=== PATIENT | male | born 1965 | race Caucasian/White ===

== ENCOUNTER 2025-06-20 10:04 | Inpatient (IN) | payer OTHER ==
[~2025-06-20] VITALS: Ht 170.2 cm; Wt 79.8 kg
[2025-06-20] MEDS ORDERED: SINGULAIR5 MG PO (11:18)
--- NOTE | 2025-06-20 11:20 | NUR ---
SE RECIBE MASCULINO ALERTA Y ORIENTADO X3 CUAL REFIERE PRESENTA DOLOR EN FLANCO DERECHO QUE IRRADIA A PARTE SUPERIOR DE ESPLADA Y PRESENTA DOLOR AL RESPIRAR. NIEGA DOLOR AL TACTO. SE PATSY S/V Y UBICA.
[2025-06-20] MEDS ORDERED: DEXAMETHASONE SODIUM PHOSPHATE 4 MG/ML VIAL IV ONE (11:45)
[2025-06-20] MEDS ORDERED: KETOROLAC TROMETHAMINE 30 MG VIAL IV ONE (11:45)
[2025-06-20] MEDS ORDERED: 0.9 % SODIUM CHLORIDE 1,000 ML IV ONE (11:45)
[2025-06-20] MEDS ORDERED: DEXAMETHASONE SODIUM PHOSPHATE 4 MG/ML VIAL ONE (11:46)
[2025-06-20] MEDS ORDERED: KETOROLAC TROMETHAMINE 30 MG VIAL ONE (11:46)
--- NOTE | 2025-06-20 12:28 | NUR ---
PACIENTE ALERTA Y ORIENTADO SE EDUCA SOBRE TRATAMIENTO A SEGUIR, EL MISMO REFIERE ENTENDER. PACIENTE SE LE ADMINISTRAN MEDICAMENTOS, NANCY DE MUESTRAS CON MEDIDAS ASEOTICAS. SE HACE ENTREGA DE ENVACE PARA COLECTAR U/A Y PERMANECE EN ESPERA PARA XRAY.
[2025-06-20 12:32] LABS: BASO % 0.1 % (0.1-1.2); EOS # 0.02 (0.04-0.54); EOS % 0.1 % (0.7-7.0); LYMPH # 0.68 (1.18-3.74); LYMPH % 4.6 % (19.3-53.1); MEAN PLATELET VOLUME 10.40 fl (9.4-12.4); MONO # 0.31 (0.24-0.82); MONO % 2.1 % (4.7-12.5); NEUT # 13.60 (1.56-6.13); NEUT % 92.5 % (34.0-71.1); RED CELL DISTRIBUTION WIDTH 13.2 % (11.6-14.4)
[2025-06-20 12:44] LABS: ERYTHROCYTE SEDIMENTATION RATE 12 mm/hr (0-20)
[2025-06-20] MEDS ORDERED: LEVALBUTEROL HCL 1.25 MG/3 ML SOLUTION IH SCH ×2 (13:00→14:40)
[2025-06-20] MEDS ORDERED: CEFTRIAXONE SODIUM 2,000 MG VIAL IV ONE (13:00)
[2025-06-20] MEDS ORDERED: IPRATROPIUM BROMIDE 0.5 MG/2.5 ML AMPUL.NEB IH ONE ×2 (13:00→13:08)
[2025-06-20] MEDS ORDERED: CEFTRIAXONE SODIUM 2,000 MG VIAL ONE (13:04)
[2025-06-20 13:08] LABS: URINE APPEARANCE Clear; URINE BILIRRUBIN Negative (NEGATIVE); URINE BLOOD Negative; URINE COLOR Yellow; URINE GLUCOSE Negative (NEGATIVE); URINE KETONE Trace (NEGATIVE); URINE LEUKOCYTE Trace; URINE NITRATE Negative; URINE PROTEIN Trace (NEGATIVE); URINE UROBILINOGEN 0.2 E.U./dl
[2025-06-20] MEDS ORDERED: LEVALBUTEROL HCL 0.63 MG/3 ML SOLUTION IH ONE (13:09)
[2025-06-20 13:13] LABS: URINE BACTERIA 8.0 uL (0.0-1933); URINE CAST 2.83 uL (0.0-1.40); URINE EPITHELIAL CELLS 14.1 uL (0.0-38.8); URINE RBC 3.3 uL (0.0-20.8); URINE WBC 3.3 uL (0.0-23.2)
[2025-06-20 13:13] LABS: ALT/SGPT 24.0 U/L (12-78); AST/SGOT 12.0 U/L (15-37); BILIRUBIN TOTAL 1.95 mg/dL (0.3-1.2); BUN CREA RATIO 10.0 (7.0-25.0); CREATININE SERUM 1.24 mg/dL (0.70-1.30); GFR 59.67; GLOBULINA 3.9 G/DL (2.4-3.5); GLUCOSE FASTING 104.0 mg/dL (65-100); OSMOLALITY SERUM 280.0 MOSM/KG (275-295)
[2025-06-20 13:28] LABS: URINE CRYSTALS FEW /HPF
[2025-06-20 13:32] LABS: COVID-19 AG NEGATIVE (NEGATIVE)
[2025-06-20] MEDS ORDERED: IPRATROPIUM BROMIDE 0.5 MG/2.5 ML AMPUL.NEB IH SCH ×2 (14:40→19:55)
[2025-06-20] MEDS ORDERED: AZITHROMYCIN 500 MG VIAL IV ONE ×2 (14:45→15:05)
--- NOTE | 2025-06-20 15:36 | NUR ---
SE ADMINISTRA TX LOLA ORDEN MEDICA BAJO MEDIDAS ASEPTICAS. SE ORIENTA PTE QUIEN REFIERE ENTENDER Y ACEPTAR
[2025-06-20] MEDS ORDERED: CEFTRIAXONE SODIUM 2,000 MG in 0.9 % SODIUM CHLORIDE 100 ML IV SCH (19:57)
[2025-06-20] MEDS ORDERED: FAMOTIDINE/PF 20 MG in 0.9 % SODIUM CHLORIDE 100 ML IV SCH (19:58)
[2025-06-20] MEDS ORDERED: ACETAMINOPHEN 500 MG GEL..CAP PO SCH (20:00)
[2025-06-20] MEDS ORDERED: LEVALBUTEROL HCL 0.63 MG/3 ML SOLUTION IH SCH (21:00)
[2025-06-20 22:42] VITALS: BP 150/73
[2025-06-21 08:05] LABS: BASO % 0.1 % (0.1-1.2); EOS # 0.01 (0.04-0.54); EOS % 0.1 % (0.7-7.0); LYMPH # 1.02 (1.18-3.74); LYMPH % 6.8 % (19.3-53.1); MEAN PLATELET VOLUME 10.80 fl (9.4-12.4); MONO # 0.65 (0.24-0.82); MONO % 4.4 % (4.7-12.5); NEUT # 12.79 (1.56-6.13); NEUT % 85.7 % (34.0-71.1); RED CELL DISTRIBUTION WIDTH 13.7 % (11.6-14.4)
[2025-06-21 08:40] VITALS: BP 107/64; O2SAT 98
[2025-06-21] MEDS ORDERED: AZITHROMYCIN 500 MG VIAL IV ONE (08:46)
[2025-06-21] MEDS ORDERED: AZITHROMYCIN 500 MG VIAL IV SCH (09:00)
[2025-06-21 09:13] LABS: BUN CREA RATIO 14.0 (7.0-25.0); CREATININE SERUM 0.84 mg/dL (0.70-1.30); GFR 93.52; GLUCOSE FASTING 125.0 mg/dL (65-100); OSMOLALITY SERUM 290.0 MOSM/KG (275-295)
[2025-06-21 18:21] VITALS: BP 110/65; O2SAT 100
[2025-06-22 01:16] VITALS: BP 121/72; O2SAT 98
[2025-06-22 05:17] LABS: BASO % 0.2 % (0.1-1.2); EOS # 0.09 (0.04-0.54); EOS % 0.8 % (0.7-7.0); LYMPH # 1.34 (1.18-3.74); LYMPH % 12.1 % (19.3-53.1); MEAN PLATELET VOLUME 10.60 fl (9.4-12.4); MONO # 0.62 (0.24-0.82); MONO % 5.6 % (4.7-12.5); NEUT # 8.95 (1.56-6.13); NEUT % 80.7 % (34.0-71.1); RED CELL DISTRIBUTION WIDTH 13.5 % (11.6-14.4)
[2025-06-22] MEDS ORDERED: AZITHROMYCIN 500 MG VIAL IV ONE (08:12)
[2025-06-22 08:37] VITALS: BP 120/65; O2SAT 97
== END 2025-06-22 13:28 | disposition home or self-care (01) | DRG 195 ==
LOC: ER 10:04 → MEDJ 19:57
PROVIDERS: Internal Medicine Infectious Disease; ADMIT Internal Medicine; ATTEND Internal Medicine
PROC: BB24ZZZ Computerized Tomography (CT Scan) of Bilateral Lungs (ICD-10-PCS; principal; 2025-06-21)
PROC: 3E0F7GC Introduction of Other Therapeutic Substance into Respiratory Tract, Via Natural or Artificial Opening (ICD-10-PCS; 2025-06-21)
DX: J18.9 Pneumonia, unspecified organism (principal); D72.828 Other elevated white blood cell count; R09.02 Hypoxemia